=== PATIENT | female | born 1925 | race Caucasian/White ===

== ENCOUNTER → 2016-12-19 | Outpatient (CLI) | payer OTHER ==
[~2016-12-19] MED LIST: ASPIRIN EC81 M1 PO; BENTYL 10 MG CA10 M1 PO; CALCIUM/MAG PO; CHLORELLA CAPS1 EACH PO; HYDROCODON-ACE1 EAC7 PO; LEVAQUIN 500 M500 M2 PO; LOSARTAN-HCTZ1 EACH PO; MAGOX 400400 MG PO; MELOXICAM7.5 MG PO; MOBIC7.5 MG PO; MUCINEX TA600 MG/TA2 PO; MULTIVITAMINS PO; NORCO 5-325 TA1 EACH PO; OMEGA 3 PO; OMEPRAZOLE20 M2 PO; OXYCODONE-ACET1 EACH PO; PREDNISONE 10 M10 MG PO; PROBIOTIC1 EACH PO; RED YEAST RICE600 MG PO; TRAMADOL 50 MG50 MG PO; TRAMADOL-ACETA1 EACH; TURMERIC500 MG PO; VITAMIN D-3 PO; VITAMINC500 PO
== END ==
LOC: RAD 13:07
DX: J44.9 Chronic obstructive pulmonary disease, unspecified (principal); M41.84 Other forms of scoliosis, thoracic region